=== PATIENT | female | born 1995 | race Caucasian/White ===

== ENCOUNTER 2020-10-17 13:05 | Outpatient (CLI) | payer OTHER ==
[2020-10-17 13:49] LABS: BASOPHILS % (AUTO) 1 % (0-1); EOSINOPHILS % (AUTO) 2 % (1-7); LYMPHOCYTES % (AUTO) 19 % (22-44); MEAN CORPUSCULAR HEMOGLOBIN 29.8 pg (27.0-34.8); MEAN CORPUSCULAR HGB CONC 33.8 g/dL (32.4-35.8); MEAN PLATELET VOLUME 8.9 fL (7.4-10.4); MONOCYTES % (AUTO) 5 % (2-9); NEUTROPHILS % (AUTO) 73 % (42-75); PLATELET COUNT 257 x10^3/uL (130-400); RED BLOOD COUNT 4.58 x10^6/uL (3.82-5.3); RED CELL DISTRIBUTION WIDTH 13.6 % (9.6-15.2)
[2020-10-17 13:55] LABS: MD NO
== END 2020-10-17 23:59 | disposition home or self-care (01) ==
LOC: LAB 13:05
PROVIDERS: ATTEND Obstetrics & Gynecology
DX: Z34.81 Encounter for supervision of other normal pregnancy, first trimester (principal); Z3A.12 12 weeks gestation of pregnancy
CPT/HCPCS: 36415; 85025; 85613; 85670; 85705; 85732; 86146; 86147; 86592; 86762; 86850; 86900; 87086; 87340; 87806; G0475

== ENCOUNTER 2020-11-22 08:47 | Emergency (ER) | payer OTHER ==
[~2020-11-22] VITALS: Ht 172.7 cm; Wt 87.5 kg
--- NOTE | 2020-11-22 09:25 | NUR ---
PT AMBULATED TO ROOM FROM TRIAGE. PT STATED THAT SHE IS 17 WEEKS AND YETERDAY SHE STARTED EXPERIENCING SOME CRAMPING AND SMALL AMOUNT OF VAGINAL BLEEDING. 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 PT STATED THAT SHE HAS NOT YET BEEN ABLE TO FEEL BABY MOVE. PT STATED THAT SHE CURRENTLY DOES NOT HAVE CRAMPING, BUT HAD SOME EARLIER THIS MORNING.
[2020-11-22 09:36] LABS: BASOPHILS % (AUTO) 0 % (0-1); EOSINOPHILS % (AUTO) 2 % (1-7); LYMPHOCYTES % (AUTO) 15 % (22-44); MEAN CORPUSCULAR HEMOGLOBIN 30.1 pg (27.0-34.8); MEAN CORPUSCULAR HGB CONC 33.9 g/dL (32.4-35.8); MEAN PLATELET VOLUME 9.1 fL (7.4-10.4); MONOCYTES % (AUTO) 4 % (2-9); NEUTROPHILS % (AUTO) 78 % (42-75); PLATELET COUNT 257 x10^3/uL (130-400); RED BLOOD COUNT 4.56 x10^6/uL (3.82-5.3); RED CELL DISTRIBUTION WIDTH 13.8 % (9.6-15.2)
[2020-11-22 09:39] LABS: MD NO
[2020-11-22 09:50] LABS: ALBUMIN 3.2 g/dL (3.4-5.0); ANION GAP 8 mmol/L (5-15); CALCIUM 9.5 mg/dL (8.5-10.1); CHLORIDE 107 mmol/L (98-107)
[2020-11-22 10:09] LABS: ALANINE AMINOTRANSFERASE 17 U/L (12-78); ALKALINE PHOSPHATASE 64 U/L (45-117); BILIRUBIN,TOTAL 0.6 mg/dL (0.2-1.0); CREATININE 0.63 mg/dL (0.55-1.02); TOTAL PROTEIN 7.4 g/dL (6.4-8.2)
[2020-11-22 10:23] LABS: MICROSCOPIC INDICATED
[2020-11-22 10:33] VITALS: BP 115/65
--- NOTE | 2020-11-22 10:34 | NUR ---
PT BACK FROM US. PT RESTING COMFORTABLY IN [facility] WITH AT BEDSIDE. CALL LIGHT WITHIN REACH.
--- NOTE | 2020-11-22 11:21 | NUR ---
DIACHARGE INSTRUCTIONS REVIEWED WITH PT. ALL QUESTIONS ANSWERED AT THIS TIME.
== END 2020-11-22 11:23 | disposition home or self-care (01) ==
LOC: ED 09:46
DX: O46.92 Antepartum hemorrhage, unspecified, second trimester (principal); R10.2 Pelvic and perineal pain; Z3A.19 19 weeks gestation of pregnancy
CPT/HCPCS: 36415; 76815; 80053; 81001; 84702; 85025; 86901; 87086; 99284

== ENCOUNTER 2021-03-01 13:13 | Inpatient (IN) | payer OTHER ==
[~2021-03-01] VITALS: Ht 170.2 cm; Wt 91.2 kg
[2021-03-01 14:30] LABS: BASOPHILS % (AUTO) 0 % (0-1); EOSINOPHILS % (AUTO) 3 % (1-7); LYMPHOCYTES % (AUTO) 16 % (22-44); MEAN CORPUSCULAR HEMOGLOBIN 29.8 pg (27.0-34.8); MEAN PLATELET VOLUME 9.6 fL (7.4-10.4); MONOCYTES % (AUTO) 6 % (2-9); NEUTROPHILS % (AUTO) 76 % (42-75); PLATELET COUNT 210 x10^3/uL (130-400); RED BLOOD COUNT 4.17 x10^6/uL (3.82-5.3); RED CELL DISTRIBUTION WIDTH 13.8 % (9.6-15.2)
[2021-03-01] MEDS ORDERED: PLEASE ENTER HEIGHT AND WEIGHT MC SCH (14:30)
[2021-03-01 14:32] LABS: MICROSCOPIC AUTO
[2021-03-01 14:42] LABS: ALANINE AMINOTRANSFERASE 14 U/L (12-78); ALBUMIN 2.4 g/dL (3.4-5.0); ANION GAP 7 mmol/L (5-15); CALCIUM 8.9 mg/dL (8.5-10.1); CHLORIDE 108 mmol/L (98-107); CREATININE 0.55 mg/dL (0.55-1.02)
[2021-03-01 14:45] LABS: ALKALINE PHOSPHATASE 110 U/L (45-117); BILIRUBIN,TOTAL 0.4 mg/dL (0.2-1.0); TOTAL PROTEIN 6.7 g/dL (6.4-8.2)
[2021-03-01 14:47] VITALS: BP 136/85
[2021-03-01] MEDS: BETAMETHASONE 6 MG/ML, 5ML IM SCH (15:41)
[2021-03-01 20:59] VITALS: BP 137/78
[2021-03-02] MEDS: PRENATAL VIT/IRON/FA 1 EACH TABLET PO SCH (11:45)
[2021-03-02] MEDS: BETAMETHASONE 6 MG/ML, 5ML IM SCH (14:50)
[2021-03-03 07:30] VITALS: BP 135/78
[2021-03-03] MEDS: PRENATAL VIT/IRON/FA 1 EACH TABLET PO SCH (09:00)
[2021-03-03] MEDS: DOCUSATE 100 MG CAPSULE PO PRN (09:27)
[2021-03-04 08:39] VITALS: BP 133/81
[2021-03-04] MEDS: PRENATAL VIT/IRON/FA 1 EACH TABLET PO SCH (08:51)
[2021-03-04 19:30] VITALS: BP 137/78
[2021-03-05] MEDS: DOCUSATE 100 MG CAPSULE PO PRN (09:00)
[2021-03-05] MEDS: PRENATAL VIT/IRON/FA 1 EACH TABLET PO SCH (09:00)
[2021-03-06] MEDS: PRENATAL VIT/IRON/FA 1 EACH TABLET HOMEMEDPO SCH (09:00)
[2021-03-07] MEDS: PRENATAL VIT/IRON/FA 1 EACH TABLET HOMEMEDPO SCH (08:30)
[2021-03-08] MEDS: PRENATAL VIT/IRON/FA 1 EACH TABLET HOMEMEDPO SCH (08:00)
[2021-03-09] MEDS ORDERED: ACETAMINOPHEN 325 MG TABLET ONE (07:35)
[2021-03-09] MEDS: PRENATAL VIT/IRON/FA 1 EACH TABLET HOMEMEDPO SCH (09:08)
[2021-03-09 14:22] LABS: BASOPHILS % (AUTO) 1 % (0-1); EOSINOPHILS % (AUTO) 2 % (1-7); LYMPHOCYTES % (AUTO) 16 % (22-44); MEAN CORPUSCULAR HEMOGLOBIN 29.8 pg (27.0-34.8); MEAN CORPUSCULAR HGB CONC 33.8 g/dL (32.4-35.8); MONOCYTES % (AUTO) 5 % (2-9); NEUTROPHILS % (AUTO) 76 % (42-75); PLATELET COUNT 188 x10^3/uL (130-400); RED BLOOD COUNT 4.29 x10^6/uL (3.82-5.3); RED CELL DISTRIBUTION WIDTH 14.3 % (9.6-15.2)
[2021-03-09 14:33] LABS: ALANINE AMINOTRANSFERASE 14 U/L (12-78); ALBUMIN 2.2 g/dL (3.4-5.0); ANION GAP 8 mmol/L (5-15); CALCIUM 8.8 mg/dL (8.5-10.1); CHLORIDE 103 mmol/L (98-107)
[2021-03-09 14:35] LABS: ALKALINE PHOSPHATASE 102 U/L (45-117); BILIRUBIN,TOTAL 0.4 mg/dL (0.2-1.0); TOTAL PROTEIN 6.6 g/dL (6.4-8.2)
[2021-03-10] MEDS: PRENATAL VIT/IRON/FA 1 EACH TABLET HOMEMEDPO SCH (09:00)
[2021-03-11 07:34] LABS: BASOPHILS % (AUTO) 1 % (0-1); EOSINOPHILS % (AUTO) 2 % (1-7); LYMPHOCYTES % (AUTO) 20 % (22-44); MEAN CORPUSCULAR HEMOGLOBIN 30.2 pg (27.0-34.8); MEAN CORPUSCULAR HGB CONC 34.2 g/dL (32.4-35.8); MONOCYTES % (AUTO) 5 % (2-9); NEUTROPHILS % (AUTO) 72 % (42-75); PLATELET COUNT 186 x10^3/uL (130-400); RED BLOOD COUNT 4.44 x10^6/uL (3.82-5.3); RED CELL DISTRIBUTION WIDTH 14.4 % (9.6-15.2)
[2021-03-11 07:50] LABS: ALBUMIN 2.3 g/dL (3.4-5.0); ANION GAP 4 mmol/L (5-15); CALCIUM 9.1 mg/dL (8.5-10.1); CHLORIDE 106 mmol/L (98-107)
[2021-03-11 07:55] LABS: ALANINE AMINOTRANSFERASE 17 U/L (12-78); ALKALINE PHOSPHATASE 108 U/L (45-117); BILIRUBIN,TOTAL 0.5 mg/dL (0.2-1.0); CREATININE 0.49 mg/dL (0.55-1.02); TOTAL PROTEIN 6.8 g/dL (6.4-8.2)
[2021-03-12 08:10] VITALS: BP 123/77
[2021-03-12] MEDS: PRENATAL VIT/IRON/FA 1 EACH TABLET HOMEMEDPO SCH (09:00)
[2021-03-12] MEDS ORDERED: METOCLOPRAMIDE 5 MG/ML, 2ML ONE (19:17)
[2021-03-12] MEDS ORDERED: SODIUM CITRATE/CITRIC ACID 15 ML UDC ONE (19:17)
[2021-03-12] MEDS ORDERED: NEWBORN KIT ONE (19:29)
[2021-03-12 19:35] LABS: BASOPHILS % (AUTO) 1 % (0-1); EOSINOPHILS % (AUTO) 2 % (1-7); LYMPHOCYTES % (AUTO) 18 % (22-44); MEAN CORPUSCULAR HEMOGLOBIN 29.8 pg (27.0-34.8); MEAN CORPUSCULAR HGB CONC 33.7 g/dL (32.4-35.8); MEAN PLATELET VOLUME 10.7 fL (7.4-10.4); MONOCYTES % (AUTO) 5 % (2-9); NEUTROPHILS % (AUTO) 74 % (42-75); PLATELET COUNT 194 x10^3/uL (130-400); RED BLOOD COUNT 4.41 x10^6/uL (3.82-5.3); RED CELL DISTRIBUTION WIDTH 14.4 % (9.6-15.2)
[2021-03-12 19:44] LABS: ALANINE AMINOTRANSFERASE 20 U/L (12-78); ALBUMIN 2.3 g/dL (3.4-5.0); ANION GAP 11 mmol/L (5-15); CHLORIDE 104 mmol/L (98-107); CREATININE 0.58 mg/dL (0.55-1.02)
[2021-03-12 19:46] LABS: ALKALINE PHOSPHATASE 122 U/L (45-117); BILIRUBIN,TOTAL 0.3 mg/dL (0.2-1.0); TOTAL PROTEIN 7.1 g/dL (6.4-8.2)
[2021-03-12] MEDS ORDERED: morphine SULFATE/PF 1 MG/ML, 10ML ONE (19:48)
[2021-03-12] MEDS ORDERED: CEFAZOLIN 1,000 MG ONE (19:49)
[2021-03-12] MEDS ORDERED: OXYTOCIN 10 UNITS/ML, 1ML ONE (19:49)
[2021-03-12] MEDS ORDERED: DEXAMETHASONE 4 MG/ML, 1ML ONE (19:49)
[2021-03-12] MEDS ORDERED: KETOROLAC 30 MG/1 ML ONE (19:49)
[2021-03-12] MEDS ORDERED: ONDANSETRON 2MG/ML, 2ML ONE (19:49)
[2021-03-12] MEDS ORDERED: SODIUM CHLORIDE 0.9% PF 10ML ONE ×2 (19:49→20:04)
[2021-03-12] MEDS ORDERED: ONDANSETRON 2MG/ML, 2ML IVPush ONE (20:00)
[2021-03-12] MEDS ORDERED: CALCIUM CARBONATE 500 MG TAB.CHEW PO PRN (20:00)
[2021-03-12] MEDS ORDERED: METOCLOPRAMIDE 5 MG/ML, 2ML IV ONE (20:00)
[2021-03-12] MEDS ORDERED: AZITHROMYCIN 500 MG in SODIUM CHLORIDE 0.9% 250 ML IV ONE (20:00)
[2021-03-12] MEDS ORDERED: SODIUM CITRATE/CITRIC ACID 30 ML UDC PO ONE (20:00)
[2021-03-12] MEDS ORDERED: LACTATED RINGERS 1,000 ML IVBOLUS ONE (20:00)
[2021-03-12] MEDS ORDERED: PHENYLEPHRINE 10 MG/ML ONE (20:04)
[2021-03-12] MEDS: KETOROLAC 30 MG/1 ML IV SCH (20:30)
[2021-03-12] MEDS ORDERED: MORPHINE SULFATE 4 MG/ML, 1ML IVPush PRN (21:00)
[2021-03-12] MEDS ORDERED: DOCUSATE 100 MG CAPSULE PO PRN (21:00)
[2021-03-12] MEDS ORDERED: OXYcodone/APAP 5/325MG TABLET PO PRN (21:00)
[2021-03-12] MEDS: LACTATED RINGERS 1,000 ML IV SCH ×2 (21:00→21:50)
[2021-03-12] MEDS ORDERED: morphine SULFATE 10 MG/ML, 1ML IVPush PRN ×2 (21:00→21:30)
[2021-03-12] MEDS ORDERED: METHYLERGONOVINE 0.2 MG/ML IM PRN (21:00)
[2021-03-12] MEDS ORDERED: MISOPROSTOL 200 MCG TABLET PR PRN (21:00)
[2021-03-12] MEDS ORDERED: BISACODYL 10 MG SUPP PR PRN (21:00)
[2021-03-12] MEDS ORDERED: ONDANSETRON 2MG/ML, 2ML IV PRN ×2 (21:00→21:30)
[2021-03-12] MEDS ORDERED: MIDAZOLAM 1 MG/ML, 5ML IV PRN (21:30)
[2021-03-12] MEDS ORDERED: ONDANSETRON 2MG/ML, 2ML IVPush PRN (21:30)
[2021-03-12] MEDS ORDERED: NO SEDATIVES, TRANQUILIZERS OR ANTIEMETICS XX SCH (21:30)
[2021-03-12] MEDS ORDERED: FENTANYL PF 100 MCG/2ML IVPush PRN (21:30)
[2021-03-12] MEDS ORDERED: OXYcodone 5 MG/5 ML ORAL.SOL UDC PO PRN (21:30)
[2021-03-12] MEDS ORDERED: LABETALOL 5MG/ML 40ML VIAL IV PRN (21:30)
[2021-03-12] MEDS ORDERED: NALOXONE 0.4 MG/ML, 1ML IV PRN (21:30)
[2021-03-12] MEDS ORDERED: MEPERIDINE/PF 25MG/0.5ML IV PRN (21:30)
[2021-03-12] MEDS ORDERED: EPHEDRINE 50 MG/ML, 1ML IVPush PRN (21:30)
[2021-03-12] MEDS ORDERED: METOCLOPRAMIDE 5 MG/ML, 2ML IVPush PRN (21:30)
[2021-03-12] MEDS ORDERED: DIPHENHYDRAMINE 50 MG/ML, 1ML IV PRN (21:30)
[2021-03-12] MEDS: OXYTOCIN 30U/ 0.9% NaCL 500ML 500 ML IV SCH (21:50)
[2021-03-12 23:30] VITALS: BP 131/80
[2021-03-13] MEDS ORDERED: KETOROLAC 30 MG/1 ML IVPush SCH (02:00)
[2021-03-13 03:00] VITALS: BP 127/81
[2021-03-13] MEDS: OXYcodone/APAP 5/325MG TABLET PO PRN ×4 (03:00→19:48)
[2021-03-13] MEDS: KETOROLAC 30 MG/1 ML IV SCH ×4 (03:00→22:43)
[2021-03-13] MEDS: LACTATED RINGERS 1,000 ML IV SCH ×5 (05:00→21:00)
[2021-03-13] MEDS: OXYTOCIN 30U/ 0.9% NaCL 500ML 500 ML IV SCH ×2 (05:00→17:00)
[2021-03-13 06:30] LABS: BASOPHILS % (AUTO) 1 % (0-1); EOSINOPHILS % (AUTO) 0 % (1-7); LYMPHOCYTES % (AUTO) 7 % (22-44); MEAN CORPUSCULAR HEMOGLOBIN 29.9 pg (27.0-34.8); MEAN CORPUSCULAR HGB CONC 33.5 g/dL (32.4-35.8); MEAN PLATELET VOLUME 10.4 fL (7.4-10.4); MONOCYTES % (AUTO) 3 % (2-9); NEUTROPHILS % (AUTO) 89 % (42-75); PLATELET COUNT 177 x10^3/uL (130-400); RED BLOOD COUNT 3.91 x10^6/uL (3.82-5.3); RED CELL DISTRIBUTION WIDTH 14.4 % (9.6-15.2)
[2021-03-13 07:57] VITALS: BP 114/72
[2021-03-13] MEDS: PRENATAL VIT/IRON/FA 1 EACH TABLET PO SCH (09:00)
[2021-03-13] MEDS: PRENATAL VIT/IRON/FA 1 EACH TABLET HOMEMEDPO SCH (09:00)
[2021-03-13 12:34] VITALS: BP 132/78
[2021-03-13 16:27] VITALS: BP 111/72
[2021-03-13 19:40] VITALS: BP 135/89
[2021-03-13] MEDS: DOCUSATE 100 MG CAPSULE PO PRN (19:48)
[2021-03-14] MEDS: OXYTOCIN 30U/ 0.9% NaCL 500ML 500 ML IV SCH ×3 (03:00→23:00)
[2021-03-14] MEDS: LACTATED RINGERS 1,000 ML IV SCH ×6 (03:00→23:00)
[2021-03-14] MEDS: KETOROLAC 30 MG/1 ML IV SCH ×3 (04:31→17:09)
[2021-03-14] MEDS: OXYcodone/APAP 5/325MG TABLET PO PRN ×4 (04:32→21:19)
[2021-03-14 08:46] VITALS: BP 128/59
[2021-03-14] MEDS: PRENATAL VIT/IRON/FA 1 EACH TABLET PO SCH (08:49)
[2021-03-14] MEDS: PRENATAL VIT/IRON/FA 1 EACH TABLET HOMEMEDPO SCH (08:49)
[2021-03-14] MEDS: DOCUSATE 100 MG CAPSULE PO PRN ×2 (08:51→21:19)
[2021-03-14 19:42] VITALS: BP 135/82
[2021-03-14] MEDS: SIMETHICONE 80 MG CHEW TAB PO PRN (21:19)
[2021-03-14] MEDS: IBUPROFEN 800 MG TABLET PO PRN (23:05)
[2021-03-15] MEDS: IBUPROFEN 800 MG TABLET PO PRN ×3 (05:10→19:10)
[2021-03-15] MEDS: SIMETHICONE 80 MG CHEW TAB PO PRN ×2 (05:10→11:20)
[2021-03-15] MEDS: OXYcodone/APAP 5/325MG TABLET PO PRN ×3 (05:31→19:12)
[2021-03-15 08:45] VITALS: BP 132/84
[2021-03-15] MEDS: PRENATAL VIT/IRON/FA 1 EACH TABLET HOMEMEDPO SCH (09:00)
[2021-03-15] MEDS: PRENATAL VIT/IRON/FA 1 EACH TABLET PO SCH (09:00)
[2021-03-15] MEDS: DOCUSATE 100 MG CAPSULE PO PRN (09:26)
[2021-03-15 20:00] VITALS: BP 132/83
[2021-03-16 07:20] VITALS: BP 135/89
[2021-03-16] MEDS: IBUPROFEN 800 MG TABLET PO PRN (07:23)
[2021-03-16] MEDS: OXYcodone/APAP 5/325MG TABLET PO PRN (07:24)
[2021-03-16] MEDS: PRENATAL VIT/IRON/FA 1 EACH TABLET PO SCH (07:28)
[2021-03-16] MEDS: DOCUSATE 100 MG CAPSULE PO PRN (07:28)
[2021-03-16] MEDS: PRENATAL VIT/IRON/FA 1 EACH TABLET HOMEMEDPO SCH (07:28)
[2021-03-16] MEDS ORDERED: IBUP-1223 PO (08:18)
[2021-03-16] MEDS ORDERED: OXYC1TAB14 PO (08:18)
[2021-03-16] MEDS ORDERED: DOCU-131 PO (08:18)
== END 2021-03-16 15:25 | disposition home or self-care (01) | DRG 788 ==
LOC: LDIP 13:13 → 2NW 03-12 23:10
PROVIDERS: ADMIT Obstetrics & Gynecology; ATTEND Obstetrics & Gynecology
PROC: 10D00Z1 Extraction of Products of Conception, Low, Open Approach (ICD-10-PCS; principal; 2021-03-12)
PROC: 10H073Z Insertion of Monitoring Electrode into Products of Conception, Via Natural or Artificial Opening (ICD-10-PCS; 2021-03-12)
DX: O36.5930 Maternal care for other known or suspected poor fetal growth, third trimester, not applicable or unspecified (principal); Z20.822 Contact with and (suspected) exposure to COVID-19; O76 Abnormality in fetal heart rate and rhythm complicating labor and delivery; Z37.0 Single live birth; Z83.3 Family history of diabetes mellitus; Z3A.32 32 weeks gestation of pregnancy
CPT/HCPCS: 36415; 80053; 81001; 82570; 84156; 85025; 86592; 86850; 86900; 87086; 87635; 88307; G0378; J0690; J0702; J1100; J1885; J2274; J2405; J2370; J2590; J2765; J7120